=== PATIENT | male | born 1960 | race African-American/Black ===

== ENCOUNTER 2019-12-30 10:12 | Emergency (ER) | payer OTHER ==
[~2019-12-30] VITALS: Ht 175.3 cm; Wt 88.9 kg
[2019-12-30 10:20] VITALS: Ht 175.3 cm; Wt 88.9 kg
[2019-12-30 10:44] LABS: BASOPHIL % 0.6 % (0-2); PLATELET COUNT 218 x10^3mcL (130-400); RED CELL DISTRIBUTION WIDTH 14.1 % (11.5-14.5)
[2019-12-30 10:57] LABS: CALCIUM 8.5 mg/dL (8.5-10.1); CARBON DIOXIDE 28.4 mmol/L (21-32); CHLORIDE SERUM 106 mmol/L (98-107); GFR1 > 60 mL/min; GLUCOSE SERUM 94 mg/dL (74-106); POTASSIUM SERUM 3.8 mmol/L (3.5-5.1); SODIUM SERUM 141 mmol/L (136-145)
[2019-12-30 11:00] LABS: ALBUMIN 3.6 g/dL (3.4-5.0); ALKALINE PHOSPHATASE 59 U/L (46-116); ALT/SGPT 44 U/L (16-63); AST/SGOT 32 U/L (15-37); BILIRUBIN TOTAL 0.5 mg/dL (0.20-1.00); TOTAL PROTEIN, SERUM 6.7 g/dL (6.4-8.2)
[2019-12-30 12:14] VITALS: BP 140/78
== END 2019-12-30 12:14 | disposition home or self-care (01) ==
LOC: ED 10:12
DX: T14.8XXA Other injury of unspecified body region, initial encounter (principal); R07.89 Other chest pain; I10 Essential (primary) hypertension; X58.XXXA Exposure to other specified factors, initial encounter; Y93.89 Activity, other specified; Y92.89 Other specified places as the place of occurrence of the external cause; Y99.8 Other external cause status
CPT/HCPCS: Q0092; U0003-CS